=== PATIENT | male | born 1990 | race African-American/Black ===

== ENCOUNTER 2017-04-04 12:02 | Emergency (ER) | payer SELFPAY ==
[~2017-04-04] VITALS: Ht 188 cm; Wt 80.0 kg
[2017-04-04 12:04] VITALS: BP 113/79; PULSE 66; RESP 15; TEMP 98.2; O2SAT 98
--- NOTE | 2017-04-04 13:08 | PD ---
HPI Chief Complaint: Neuro Symptoms/ Deficits Time Seen by Provider: 12:36 Travel History International Travel<30 days: No Contact w/Intl Traveler<30days: No Traveled to known affect area: No History of Present Illness HPI This patient has an atypical story. He is a healthy 27-year-old who states for the last 4 months he's had daily spells of numbness in the right side of his body. This includes arm and chest wall and abdominal wall and leg. They last about 30 minutes and resolved. He has no muscle weakness or slurring or confusion or headache. He says that he is drank one bottle of hard liquor daily since the age of 16. He lives in [place] and is visiting here and decided to come to the ER today to have this problem looked at. He is not currently having any neurologic issue. Severity symptoms is moderate. No alleviating factors. PFSH Social History Alcohol Use: Yes Tobacco Use: No Substance Use: No Allergies-Medications (Allergen,Severity, Reaction): Coded Allergies: No Known Allergies (Unverified , 04/04/17) Reported Meds & Prescriptions Reported Meds & Active Scripts Active No Active Prescriptions or Reported Medications Review of Systems General / Constitutional: No: Fever Eyes: No: Visual changes HENT: No: Headaches Cardiovascular: No: Chest Pain or Discomfort Respiratory: No: Shortness of Breath Gastrointestinal: No: Abdominal Pain Genitourinary: No: Dysuria Musculoskeletal: No: Pain Skin: No Rash Neurologic: Positive: Sensory Disturbance, No: Weakness Psychiatric: Positive: Substance Abuse, No: Depression Endocrine: No: Polydipsia Hematologic/Lymphatic: No: Easy Bruising Physical Exam Narrative GENERAL: Well-nourished, well-developed patient in no apparent distress. SKIN: Focused skin assessment reveals no rash and nodules. Skin is Warm and dry. HEAD: Atraumatic. Normocephalic. EYES: Pupils equal and round. No scleral icterus. No injection or drainage. ENT: No nasal bleeding or discharge. Mucous membranes pink and moist. NECK: Trachea midline. No JVD. CARDIOVASCULAR: Regular rate and rhythm. No murmur appreciated. RESPIRATORY: No accessory muscle use. Clear to auscultation. Breath sounds equal bilaterally. GASTROINTESTINAL: Abdomen soft, non-tender, nondistended. Hepatic and splenic margins not palpable. MUSCULOSKELETAL: No obvious deformities. No clubbing. No cyanosis. No edema. NEUROLOGICAL: Awake and alert. No obvious cranial nerve deficits. Motor grossly within normal limits. Normal speech. Sensation subjectively intact throughout to sharp and light touch PSYCHIATRIC: Appropriate mood and affect; insight and judgment poor. Data Data Last Documented VS Vital Signs Date Time Temp Pulse Resp B/P (MAP) Pulse Ox O2 Delivery O2 Flow Rate FiO2 04/04/17 14:57 04/04/17 12:04 98.2 [address] Brain W/O Iv Contrast(Rout) (04/04/17 ) MDM Medical Decision Making Medical Screen Exam Complete: Yes Emergency Medical Condition: Yes Medical Record Reviewed: Yes Differential Diagnosis Alcoholic neuropathy, TIA, multiple sclerosis, anxiety Narrative Course I have reviewed the patient's electronic medical record. Patient is neurologically intact to objective exam at this time. Sounds like the patient's main problem is alcoholism. We discussed this in recommended rehabilitation services however since he is just visiting here likely when he gets home to [place] he will need to start this. Brain CT is normal Diagnosis Primary Impression: Alcoholism Additional Impression: Numbness Additional Instructions: Follow-up with neurologist Wean off alcohol Med/Other Pt SpecificInfo: Other Scripts No Active Prescriptions or Reported Meds Disposition: 01 DISCHARGE HOME Condition: Stable Kush Spears MD Apr 04, 2017 13:08
--- NOTE | 2017-04-04 14:48 | RADRPT ---
EXAM DATE/TIME: 04/04/2017 14:06 [facility] COMPARISON: No previous studies available for comparison. INDICATIONS : Intermittent right side weakness for a couple of days RADIATION DOSE: 33.72 CTDIvol (mGy) MEDICAL HISTORY : None SURGICAL HISTORY : None. ENCOUNTER: Initial ACUITY: 1 day PAIN SCALE: 2/10 LOCATION: cranial TECHNIQUE: Multiple contiguous axial images were obtained of the head. Using automated exposure control and adj ustment of the mA and/or kV according to patient size, radiation dose was kept as low as reasonably a chievable to obtain optimal diagnostic quality images. DICOM format image data is available electro nically for review and comparison. FINDINGS: CEREBRUM: The ventricles are normal for age. No evidence of midline shift, mass lesion, hemorrhage or acute in farction. No extra-axial fluid collections are seen. POSTERIOR FOSSA: The cerebellum and brainstem are intact. The 4th ventricle is midline. The cerebellopontine angle i s unremarkable. EXTRACRANIAL: The visualized portion of the orbits is intact. SKULL: The calvaria is intact. No evidence of skull fracture. CONCLUSION: No evidence of acute intracranial abnormality. Phong White MD on April 04, 2017 at 14:46 Board Certified Radiologist. This report was verified electronically.
== END 2017-04-04 15:00 | disposition home or self-care (01) ==
LOC: NEPD 12:02
DX: F10.20 Alcohol dependence, uncomplicated (principal); R20.0 Anesthesia of skin
CPT/HCPCS: 70450; 99284

== ENCOUNTER 2017-09-30 11:56 | Emergency (ER) | payer SELFPAY ==
[~2017-09-30] VITALS: Ht 188 cm; Wt 68.0 kg
[2017-09-30 12:01] VITALS: BP 125/81; PULSE 61; RESP 20; TEMP 97.5; O2SAT 100
== END 2017-09-30 13:00 | disposition left against medical advice (07) ==
LOC: NED 11:56
DX: R06.02 Shortness of breath (principal); Z53.21 Procedure and treatment not carried out due to patient leaving prior to being seen by health care provider
CPT/HCPCS: 99281

== ENCOUNTER 2017-12-04 16:58 | Emergency (ER) | payer SELFPAY ==
[~2017-12-04] VITALS: Ht 182.9 cm; Wt 52.0 kg
[2017-12-04 17:13] VITALS: BP 127/69; PULSE 72; RESP 15; TEMP 98; O2SAT 99
[2017-12-04 18:55] VITALS: BP 110/65; PULSE 61; RESP 16; O2SAT 100
--- NOTE | 2017-12-04 19:50 | PD ---
HPI Chief Complaint: Abdominal Pain Time Seen by Provider: 19:07 Travel History International Travel<30 days: No Contact w/Intl Traveler<30days: No Traveled to known affect area: No History of Present Illness HPI Patient is a 27-year-old male presenting to the emergency department for evaluation of urinary symptoms. Patient reports 3 days of burning with urination, white penile discharge and suprapubic pressure. Patient states he has had unprotected sex recently. He denies any fever, chills, nausea, vomiting , abdominal pain. He reports occasional lower back pain. Patient denies a significant past medical history. He reports the pain is a 3 out of 10 crampy. Symptom onset was gradual, symptoms are mild to moderate nature. There are no alleviating factors. [facility] Past Medical History Medical History: Denies Significant Hx Diminished Hearing: No Genitourinary: Yes (kidney infections ) Immunizations Current: Yes Tetanus Vaccination: Unknown Influenza Vaccination: No Past Surgical History Surgical History: No Previous Surgery Social History Alcohol Use: Yes Tobacco Use: Yes Substance Use: No (denies ) Allergies-Medications (Allergen,Severity, Reaction): Coded Allergies: shellfish derived (Verified Allergy, Severe, Anaphylaxis, 12/04/17) Reported Meds & Prescriptions Reported Meds & Active Scripts Active No Active Prescriptions or Reported Medications Review of Systems Except as stated in HPI: all other systems reviewed are Neg Genitourinary: Positive: Dysuria, Discharge Physical Exam Narrative GENERAL: Well-developed, well-nourished, alert -[place] male. Resting comfortably in no acute distress. SKIN: Warm and dry. HEAD: Atraumatic. Normocephalic. EYES: Pupils equal and round. No scleral icterus. No injection or drainage. ENT: No nasal bleeding or discharge. Mucous membranes pink and moist. NECK: Trachea midline. No JVD. CARDIOVASCULAR: Regular rate and rhythm. RESPIRATORY: No accessory muscle use. Clear to auscultation. Breath sounds equal bilaterally. GASTROINTESTINAL: Abdomen soft, mildly tender in suprapubic region, nondistended. Hepatic and splenic margins not palpable. No rebound, no guarding , positive bowel sounds. MUSCULOSKELETAL: Extremities without clubbing, cyanosis, or edema. No obvious deformities. NEUROLOGICAL: Awake and alert. No obvious cranial nerve deficits. Motor grossly within normal limits. Five out of 5 muscle strength in the arms and legs. Normal speech. PSYCHIATRIC: Appropriate mood and affect; insight and judgment normal. Data Data Last Documented VS Vital Signs Date Time Temp Pulse Resp B/P (MAP) Pulse Ox O2 Delivery O2 Flow Rate FiO2 12/04/17 18:55 61 16 110/65 (80) 100 Room Air 12/04/17 17:13 98.0 Orders Orders Urinalysis - C+S If Indicated (12/04/17 19:18) Gc And Chlamydia Pcr (12/04/17 19:18) Urine Culture (12/04/17 19:38) Ceftriaxone Inj (Rocephin Inj) (12/04/17 20:30) Lidocaine 1% Inj (50 Ml) (Xylocaine 1% I (12/04/17 20:30) Azithromycin (Zithromax) (12/04/17 20:30) Labs Laboratory Tests Test 12/04/17 19:38 Urine Color YELLOW Urine Turbidity HAZY Urine pH 7.0 Urine Specific [place] 1.017 Urine Protein NEG mg/dL Urine Glucose (UA) NEG mg/dL Urine Ketones NEG mg/dL Urine Occult Blood NEG Urine Nitrite NEG Urine Bilirubin NEG Urine Urobilinogen 2.0 MG/DL Urine Leukocyte Esterase LARGE Urine RBC 3 /hpf Urine WBC 66 /hpf Urine Bacteria OCC /hpf Microscopic Urinalysis Comment CULTURE INDICATED MDM Medical Decision Making Medical Screen Exam Complete: Yes Emergency Medical Condition: Yes Interpretation(s) Laboratory Tests Test 12/04/17 19:38 Urine Color YELLOW Urine Turbidity HAZY Urine pH 7.0 Urine Specific [place] 1.017 Urine Protein NEG mg/dL Urine Glucose (UA) NEG mg/dL Urine Ketones NEG mg/dL Urine Occult Blood NEG Urine Nitrite NEG Urine Bilirubin NEG Urine Urobilinogen 2.0 MG/DL Urine Leukocyte Esterase LARGE Urine RBC 3 /hpf Urine WBC 66 /hpf Urine Bacteria OCC /hpf Microscopic Urinalysis Comment CULTURE INDICATED Vital Signs Date Time Temp Pulse Resp B/P (MAP) Pulse Ox O2 Delivery O2 Flow Rate FiO2 12/04/17 18:55 61 16 110/65 (80) 100 Room Air 12/04/17 17:13 98.0 72 15 127/69 (88) 99 Differential Diagnosis UTI versus STD versus pyelonephritis versus other Narrative Course Patient is well-appearing 27-year-old male presenting to the emergency department for evaluation of urinary symptoms and penile discharge. Patient's vital signs are stable, urinalysis and GC and chlamydia pending. Urinalysis resulted with elevated white blood cells, occasional bacteria, large leukocyte esterase. Patient will be treated empirically for chlamydia and gonorrhea. He will be discharged home with a prescription for Keflex. Patient was advised to avoid sexual contact for at least 1 week. He was advised that he will be notified if GC and Chlamydia were positive. If positive he would need to notify sexual partners to be tested as well. Patient verbalized understanding of instructions. Patient stable for discharge. Diagnosis Primary Impression: UTI (urinary tract infection) Qualified Codes: N39.0 - Urinary tract infection, site not specified Additional Impression: Discharge from penis without blood Referrals: [facility] Patient Instructions: General Instructions, Safe Sex (ED), Sexually Transmitted Diseases (ED), Urinary Tract Infection in Men (ED) Additional Instructions: Avoid sexual activity for at least 1 week You will be notified if you are positive for gonorrhea and/or chlamydia, if positive your sexual partners will need to be notified to be tested and/or treated You could follow-up at the health department, [facility] or with your primary doctor for further STD screening. Complete full course of antibiotics as prescribed Return to emergency department for any new or worsening symptoms Med/Other Pt SpecificInfo: Prescription(s) given Scripts Cephalexin (Keflex) 500 Mg Cap 500 MG PO Q12H for Infection for 7 Days, #14 CAP 0 Refills Prov: Codie Snow 12/04/17 Disposition: 01 DISCHARGE HOME Condition: Stable Codie Snow December 04, 2017 19:50
[2017-12-04 20:09] LABS: BACTERIA, URINE OCC /hpf; BILIRUBIN, URINE NEG (NEG); BLOOD, URINE NEG (NEG); GLUCOSE,URINE NEG (NEG); KETONE, URINE NEG (NEG); NITRITE,URINE NEG (NEG); URINE COLOR YELLOW (YELLW/STRAW); URINE LEUKOCYTE ESTERASE LARGE (NEG)
[2017-12-04] MEDS ORDERED: CEPH-460 PO (20:22)
[2017-12-04] MEDS ORDERED: cefTRIAXone 250 MG VIAL IM ONE (20:30)
[2017-12-04] MEDS ORDERED: LIDOCAINE HCL 1% 50 ML VIAL XX ONE (20:30)
[2017-12-04] MEDS ORDERED: AZITHROMYCIN 250 MG TAB PO ONE (20:30)
== END 2017-12-04 20:47 | disposition home or self-care (01) ==
LOC: NEPD 16:58
DX: N39.0 Urinary tract infection, site not specified (principal); R36.9 Urethral discharge, unspecified; Z72.0 Tobacco use
CPT/HCPCS: 81001; 87086; 87491; 87591; 96372; 99283; J0696